=== PATIENT | male | born 1965 | race Caucasian/White ===

== ENCOUNTER 2022-02-27 17:54 | Emergency (ER) | payer BC, SELFPAY ==
--- NOTE | ~2022-02-27 | XR_ITS ---
EXAMINATION: XR ankle RT min 3V DATE: 02/27/2022 18:19 INDICATION: Right ankle pain. Fall. TECHNIQUE: 4 views of right ankle were obtained. COMPARISON: None. FINDINGS: Bone alignment is normal. No fracture. Joint spaces are normal. There is an enthesophyte at plantar aspect of calcaneal tuberosity. IMPRESSION: 1. No fracture. Reviewed, dictated and finalized at location A. IMPRESSION: 1. No fracture.
--- NOTE | ~2022-02-27 | XR_ITS ---
EXAMINATION: XR foot RT min 3V DATE: 02/27/2022 18:19 INDICATION: Right foot pain. Fall. TECHNIQUE: 4 views of right foot were obtained. COMPARISON: None. FINDINGS: Bone alignment is normal. No fracture. There is mild osteoarthritis of first metatarsophala ngeal joint and talonavicular joint. There is an enthesophyte at plantar aspect of calcaneal tuberosi ty. IMPRESSION: 1. Mild polyarticular osteoarthritis. Reviewed, dictated and finalized at location A.
[2022-02-27 18:06] VITALS: BP 174/102; PULSE 70; RESP 16; TEMP 37.4; O2SAT 99
--- NOTE | 2022-02-27 18:21 | ED.LOWEXIN ---
HPI - Extremity Injury (Lower) General Chief Complaint: Extremity Injury, Lower Stated Complaint: INJURED ANKLE Time Seen by Provider: 02/27/22 18:31 Source: patient Mode of arrival: ambulatory Limitations: no limitations History of Present Illness HPI Narrative: 56-year-old male presenting for complaint of right ankle pain after injury today. He states he slid down a slippery range, twisting his right ankle. He endorses pain to the top and lateral aspects. Endorses severe pain with certain movements, no pain at rest. Denies swelling, redness, bruising, numbness, tingling, or weakness of the extremity. He has applied ice. He has not taken anything for pain. Related Data Home Medications Medication Instructions Recorded Confirmed aspirin 81 mg chewable tablet 81 mg PO DAILY 02/27/22 02/27/22 atorvastatin 10 mg tablet 10 mg PO DAILY 02/27/22 02/27/22 carvedilol 12.5 mg tablet 12.5 mg PO DAILY 02/27/22 02/27/22 losartan 50 mg tablet 50 mg PO DAILY 02/27/22 02/27/22 topiramate 25 mg tablet 25 mg PO DAILY 02/27/22 02/27/22 Allergies Allergy/AdvReac Type Severity Reaction Status Date / Time No Known Allergies Allergy Verified 02/27/22 18:08 Review of Systems Review of Systems: CONSTITUTIONAL: Denies body aches, fever, chills CARDIOVASCULAR: Denies chest pain, palpitations, or edema. RESPIRATORY: Denies cough or dyspnea. SKIN: Denies rash, itching, or wounds. MUSCULOSKELETAL: Reports ankle pain, swelling NEUROLOGIC: Denies headache, numbness, tingling, or weakness. PSYCH: Denies depression or anxiety. All systems reviewed & are unremarkable except as noted in HPI and below [facility] Comments At time of signature, I have reviewed and agree with nursing past medical, surgical, social and family history unless otherwise noted. Please see nursing chart for further information. There is no relevant family history pertinent to the presenting complaint Exam Narrative: GENERAL: appears in pain CHEST: Speaks in full sentences. No respiratory distress. HEART: Regular rate and rhythm. Normal and equal peripheral pulses. EXTREMITIES: Right foot has normal strength and sensation, slightly limited range of motion due to pain with movement. Mild lateral swelling, no bruising, redness or point tenderness. No open wounds, or obvious deformity; pulse palpable and equal bilaterally, skin warm, dry, pink. Capillary refill less than 3 seconds. SKIN: Warm, dry, no open areas NEURO: Alert and oriented x3. PSYCH: Normal mood and affect Course Course Emergency Course: Patient is aware of diagnosis, understands and agrees to treatment plan. Anticipatory guidance given. Patient agrees to follow-up as directed and is aware of reasons to seek care at the emergency department. Portions of this record may have been created with voice recognition software Level of Care: Express Care Visit Vital Signs Vital signs: Vital Signs Temperature 99.4 F 02/27/22 18:06 Pulse Rate 70 02/27/22 18:06 Respiratory Rate 16 02/27/22 18:06 Blood Pressure 174/102 H 02/27/22 18:06 Pulse Oximetry 99 02/27/22 18:06 Temperature 99.4 F 02/27/22 18:06 Pulse Rate 70 02/27/22 18:06 Respiratory Rate 16 02/27/22 18:06 Blood Pressure 174/102 H 02/27/22 18:06 Pulse Oximetry 99 02/27/22 18:06 Reviewed MDM - Extremity Injury (Lower) MDM Narrative Medical decision making narrative: Results of x-rays reviewed with patient. Advised supportive measures and signs/symptoms to go to the ER. Pt is appropriate for outpt treatment and f/u. Differential Diagnosis Differential diagnosis: Likely ankle sprain and strain and ankle fracture Imaging Data Radiologist's impression: Patient: Charlie Bales : 1965 MR#: [id number] Age/Sex: 56 / M Acct:[id number] Loc: [facility]? ? ADM Date: 02/27/22Attending Dr: Ordering Physician: Sushma Weiner APRN Date of Service: 02/27/22 Procedure(s): XR ankle RT min 3V Accessi
[2022-02-27 18:46] VITALS: BP 155/97
== END 2022-02-27 18:46 | disposition home or self-care (01) ==
PROVIDERS: Emergency Provider Nurse Practitioner Family; PCP Nurse Practitioner Family
DX: S93.401A Sprain of unspecified ligament of right ankle, initial encounter (principal); S96.911A Strain of unspecified muscle and tendon at ankle and foot level, right foot, initial encounter; W01.0XXA Fall on same level from slipping, tripping and stumbling without subsequent striking against object, initial encounter; Z79.82 Long term (current) use of aspirin; E78.00 Pure hypercholesterolemia, unspecified; I10 Essential (primary) hypertension
CPT/HCPCS: 73610; 73630; 99213; G0463